=== PATIENT | female | born 1985 | race Caucasian/White ===

== ENCOUNTER 2017-08-22 23:37 | Emergency (ER) | payer OTHER, SELFPAY ==
[2017-08-22 23:38] VITALS: BP 121/86; PULSE 106; RESP 15; TEMP 36.9; BMI 33.9
[2017-08-23] MEDS: 0.9% Normal Saline 1,000 ML 1000 ML IV (00:23)
[2017-08-23] MEDS: Morphine 4 MG/ML Syringe IV ×2 (00:23→02:44)
[2017-08-23] MEDS: Ondansetron 4 MG/2 ML Vial IV (00:23)
[2017-08-23] MEDS: Dicyclomine 20 MG/2 ML Vial IM (00:23)
[2017-08-23 00:38] LABS: Mucous, Urine 0 SEEN /hpf (<or=2+); Red Blood Cells-Urine 0 SEEN /hpf (0-5); White Blood Cells 0 SEEN /hpf (0-5)
[2017-08-23 00:40] LABS: Absolute Lymphocyte Count 0.27 X10^3/ul (0.83-4.51); Absolute Neutrophil Count 9.9 X10^3/uL (2.0-7.7); Basophil# 0.01 X10^3/uL; Basophil% 0.1 % (0-1); Differential Indicated SCAN CRITERIA MET; Hematocrit 48.9 % (37-47); Hemoglobin 16.7 g/dl (12.0-15.0); Lymphocyte # 0.27 X10^3/ul (4.0); Lymphocyte % 2.5 % (19-41); Mean Corp Hgb Conc 34.2 g/gl (32-36); Mean Corpuscular Hgb 30.1 pg (27.0-32.0); Mean Corpuscular Volume 88.1 fL (81-99); Mean Platelet Vol. 11.2 fl (6.2-12.0); Monocyte# 0.43 X10^3/uL; Monocyte% 4.1 % (0-10); Neutrophil # 9.87 X10^3/uL (2.7-7.7); Neutrophil % 93.1 % (47-70); POSITIVE COUNT NO; POSITIVE DIFFERENTIAL YES; POSITIVE MORPHOLOGY NO; Platelet Count 192 K/mm3 (150-450); RBC Distribution Width SD 42.2 fl (35.1-43.9); Red Blood Count 5.55 M/mm3 (4.2-5.4); White Blood Count 10.6 K/mm3 (4.4-11.0)
[2017-08-23 00:44] LABS: Color, Urine Amber (Yellow); Glucose, Dipstick Normal (Normal); Ketone-Dipstick 50 mg/dl (Negative); Leukocyte Esterase-Dipstick 100 /ul (Negative); Nitrite-Dipstick Negative (Negative); Occult Blood-Urine 150 /ul (Negative); Protein-Dipstick 30 mg/dl (Negative); Specific Gravity, Urine 1.025 (1.002-1.030); Urine Clarity Turbid (Clear); Urine Urobilinogen 1 mg/dl (Normal)
[2017-08-23 00:46] LABS: Urine Bilirubin Dipstick 1 mg/dL (Negative)
--- OUTSIDE RECORDS SUMMARY | 2017-08-23 00:56 | XMS RPT_ITS ---
:1985 Author Organization [facility] Care Team Providers Name Role Phone PODLOGMELANIE GOLDEN (ELIOT) Attending Unavailable MELANIE MCNULTY (ELIOT) Referring Unavailable ASSESSMENT, HEALTH RISK Attending Unavailable Ungur Remus Attending Unavailable Primay Care Physicia, No Primary Care Unavailable PROBLEMS PROBLEMS DATE TYPE CONDITION / CODE ATTENDING STATUS SOURCE 05/14/2017 Active Mixed hyperlipidemia NA Active [facility] / E78.2(ICD-10) [facility] [place] Rep[facility] 06/04/2017 Active Encounter for NA Active [facility] screening for lipoid [place] disorders / Repository Z13.220(ICD-10) 06/04/2017 Active Personal history of NA Active [facility] other endocrine, [place] nutritional and Repository metabolic disease / Z86.39(ICD-10) PROCEDURES PROCEDURES No Procedure Records FoundRESULTS RESULTS URINALYSIS, COMPLETE Collected: 08/23/2017 Status: P Source: [place] 12:33 AM [facility] [place] REPOSITORY Order Comment: Order Date: 08/23/17COLOR OF URINE MAY AFFECT DIPSTICK RESULTS.How was Urine Obtained? CLEAN CATCH TYPE CODE TESTS RESULT OUT OF RANGE REFERENCE UNITS LAB L400.3000 Normal Yellow COLOR Nay LAB L400.3050 Normal Clear CLARITY Turbid LAB L400.3200 Normal Normal mg/dl GLUCOSE, UR Normal LAB L400.3300 High Negative mg/dL BILIRUBIN 1 URINE Result Comment: NCOLOR OF URINE MAY AFFECT DIPSTICK RESULTS. LAB L400.3400 High Negative mg/dl KETONE UR 50 LAB L400.3465 Normal 1.002-1.030 SP.GR. 1.025 DIPSTX LAB L400.3550 Normal 5.0 - 8.0 pH UR 5.0 LAB L400.3600 High Negative mg/dl PROT 30 DIPSTX LAB L400.3700 High Normal mg/dl UROBILI 1 LAB L400.3750 Normal Negative NITRITE UR Negative LAB L400.3780 High Negative /ul OCCULT 150 BLOOD-UR LAB L400.3800 High Negative /ul LEUK 100 ESTERASE LAB L400.4050 Normal 0-5 /hpf WBC 0 SEEN LAB L400.4100 Normal 0-5 /hpf RBC-UA 0 SEEN LAB L400.4150 Normal 5-10 /hpf SQUAM EPI 0 SEEN LAB L400.4300 Normal None Seen /hpf BACTERIA 0 SEEN LAB L400.4350 Normal <or=2+ /hpf MUCUS, 0 SEEN URINE Performed By: #### L400.0001 ####[facility] [address] [place], [address] CBC W/DIFF, AUTOMATED Collected: 08/23/2017 Status: P Source: [place] 12:20 AM [facility] [place] REPOSITORY TYPE CODE TESTS RESULT OUT OF RANGE REFERENCE UNITS LAB L100.1000 Normal 4.4-11.0 K/mm3 WBC 10.6 LAB L100.1200 High 4.2-5.4 M/mm3 RBC 5.55 LAB L100.1300 High 12.0-15.0 g/dl HGB 16.7 LAB L100.1400 High 37-47 % HCT 48.9 LAB L100.1500 Normal 81-99 fL MCV 88.1 LAB L100.1600 Normal 27.0-32.0 pg MCH 30.1 LAB L100.1700 Normal 32-36 g/gl MCHC 34.2 LAB L100.1810 Normal 11.6-14.6 % RDW 13.0 CV LAB L100.1820 Normal 35.1-43.9 fl RDW 42.2 SD LAB L100.1900 Normal 150-450 K/mm3 PLT 192 LAB L100.2000 Normal 6.2-12.0 fl MPV 11.2 LAB L100.2100 High 47-70 % NEUT% 93.1 LAB L100.2200 Low 19-41 % LY% 2.5 LAB L100.2300 Normal 0-10 % MONO% 4.1 LAB L100.2400 Normal 0-5 % EO% 0.0 LAB L100.2500 Normal 0-1 % BASO% 0.1 LAB L100.2550 Normal 0.0-0.9 % IM 0.200 GRAN % Result Comment: IG% - Immature Granulocytes (promyelocytes, myelocytes andmetamyelocytes) > 1% indicates that a LEFT SHIFT is Present. LAB L100.2620 High 2.0-7.7 X10 3/uL Absolute Neut 9.9 LAB L100.2720 Low 0.83-4.51 X10 3/ul Absolute Lymph 0.27 Performed By: #### L100.0100 ####[facility] [address] [place] [place], [address] CBC Collected: 06/04/2017 Status: F Source: [place] 10:02 [facility] REPOSITORY TYPE CODE TESTS RESULT OUT OF REFERENCE UNITS RANGE LAB WBC 3.70-11.00 k/uL WBC 5.24 LAB RBC High 3.90-5.20 m/uL RBC 5.27 LAB HGB 11.5-15.5 g/dL Hemoglobin 15.5 LAB HCT High 36.0-46.0 % Hematocrit 47.3 LAB MCV 80.0-100.0 fL MCV 89.8 LAB MCH 26.0-34.0 pG MCH 29.4 LAB MCHC 30.5-36.0 g/dL MCHC 32.8 LAB RDWCV 11.5-15.0 % RDW-CV 12.6 LAB PLTCT 150-400 k/uL Platelet 201 Count LAB MPV 9.0-12.7 fL MPV 11.1 LAB ABSNUC <0.01 k/uL Absolute nRBC <0.01 Performed By: #### CBC, CMP, LIPB, B12 ####[facility] [address] [place], [place] [phone] COMP METABOLIC PANEL Collected: 06/04/2017 Status: F Source: [place] 10:02 [facility] REPOSITORY TYPE CODE TESTS RESULT OUT OF REFERENCE UNITS RANGE LAB TP 6.3-8.0 g/dL Protein, Total 7.6 LAB ALB 3.9-4.9 g/dL Albumin 4.5 LAB CA 8.5-10.2 mg/dL Calcium, Total 9.5 LAB TBIL 0.2-1.3 mg/dL Bilirubin, 0.4 Total LAB ALKP 32-117 U/L Alkaline 66 Phosphatase LAB AST 13-35 U/L AST 26 LAB GLU Low 74-99 mg/dL Glucose 69 Result Comment: The [place] Diabetes Association (ADA) provides guidance for cutoff values for fasting glucose and random glucose. The ADA defines fasting as no caloric intake for at least 8 hours. Fasting plasma glucose results between 100 to 125 mg/dL indicate increased risk for diabetes (prediabetes) .Fasting plasma glucose results greater than or equal to 126 mg/dL meet the criteria for diagnosis of diabetes. In the absence of unequivocal hyperglycemia, results should be confirmed by repeat testing. In a patient with classic symptoms of hyperglycemia or hyperglycemic crisis, random plasma glucose results greater than or equal to 200 mg/dL meet the criteria for diagnosis of diabetes.Reference: Standards of Medical Care in Diabetes 2016, [place] Diabetes Association. Diabetes Care. 2016.39( Suppl 1). LAB BUN 7-21 mg/dL BUN 9 LAB CRET 0.58-0.96 mg/dL Creatinine 0.72 LAB NA 136-144 mmol/L Sodium 141 LAB K 3.7-5.1 mmol/L Potassium 4.3 LAB CL 97-105 mmol/L Chloride 101 LAB CO2 22-30 mmol/L CO2 24 LAB AGAP 9-18 mmol/L Anion Gap 16 LAB ALT High 7-38 U/L ALT 40 LAB GFRAA eGFR- Amer. >60 LAB GFRNAA . eGFR-All Other Races >60 Result Comment: eGFR (Estimated GFR) Units of measure: mL/min/1.73 meters squaredeGFR is derived from the reexpressed MDRD Study equation using the following parameters: serum creatinine, age, gender and race. The creatinine assay has been calibrated to be traceable to IDMS.An eGFR <60 mL/min/1.73m2 for >3 months is consistent with chronic kidney disease. Refer to KDOQI guidelines for clinical interpretation.In patients with unstable renal function, e.g. those with acute kidney injury, the eGFR may not accurately reflect actual GFR. Performed By: #### CBC, CMP, LIPB, B12 ####[facility], [place] [phone] LIPID PANEL, BASIC Collected: 06/04/2017 Status: F Source: [place] 10:02 AM [facility] REPOSITORY TYPE CODE TESTS RESULT OUT OF REFERENCE UNITS RANGE LAB CHOL High <200 mg/dL Cholesterol 234 Result Comment: <200 mg/dL, Desirable 200-239 mg/dL, Borderline high>239 mg/dL, High LAB TRIGLY <150 mg/dL Triglyceride 138 Result Comment: <150 mg/dL, Normal 150-199 mg/dL, Borderline high 200-499 mg/dL, High>499 mg/dL, Very high LAB HDL >39 mg/dL HDL-Cholesterol 46 Result Comment: 40-59 mg/dL, Acceptable>59 mg/dL, High: Negative risk factor for coronary heart disease<40 mg/dL, Low: Positive risk factor for coronary heart disease LAB LDL High <100 mg/dL LDL-Cholesterol 160 Result Comment: <100 mg/dL, Optimal 100-129 mg/dL, Near optimal/above optimal 130-159 mg/dL, Borderline high 160-189 mg/dL, High>189 mg/dL, Very highSecondary prevention optimal LDL Cholesterol levels are recommended to be < 70 mg/dL LAB NONHDL High <130 mg/dL Non HDL Cholesterol 188 Result Comment: <130 mg/dL, Optimal 130-159 mg/dL, Near optimal/above optimal 160-189 mg/dL, Borderline high 190-219 mg/dL, High>219 mg/dL, Very highSecondary prevention optimal non HDL Cholesterol levels are recommended to be < 100 mg/dL LAB FT hrs Fasting Time 3 LAB VLDL <30 mg/dL VLDL Cholesterol 28 LAB TCHDL <5.10 TC:HDL Ratio 5.09 LAB LDLHDL High <2.54 LDL:HDL Ratio 3.48 Result Comment: Reference:1. National Cholesterol Education Program ATP III Guideline At-A-Glance Quick Desk Reference: National Heart, Lung, and Blood [place]. National Institutes of Health. 2001: NIH Publication No. 01- 3305.2. An International Atherosclerosis Society position paper: global recommendations for the management of dyslipidemia: executive summary, Atherosclerosis. 2014: 232(2):410-413. Performed By: #### CBC, CMP, LIPB, B12 ####[facility] [address], [place] [phone] VITAMIN B12 Collected: 06/04/2017 Status: F Source: [place] 10:02 AM [facility] REPOSITORY TYPE CODE TESTS RESULT OUT OF REFERENCE UNITS RANGE LAB B12 232-1245 pg/mL Vitamin 314 B12 Performed By: #### CBC, CMP, LIPB, B12 ####[facility], [place] [phone] PROGRESS Observed: 05/14/2017 Status: COMPLETED Source: [place] 2:09 PM [facility] REPOSITORY HNO ID: [id number]: Melanie (Post Anesthesia Nurse) PodlogarService: (none)Author Type: Nurse PractitionerType: Progress NotesFiled: 05/14/2017 5:05 PMNote Text:05/14/2017Patient presents with:PhysicalSUBJECTIVE: This is a 31 year old that is here today for Above Complaints.Sees Psychiatrist up in [place] every 4- 6 weeks who manages heranxiety/depression medications. Has concern today for acne that has beenongoing for 1 year. Talked to psychiatrist thinking her medications werecausing it, but psychiatrist says no. Has tried several OTC medicationswith no relief. Denies past hx of acne problems and has never been treatedfor it.Feeling nervous, anxious, or on edge 2 Over half the daysNot being able to stop or control worrying 2 Over half the daysWorrying too much about different things 2 Over half the daysTrouble relaxing 2 Over half the daysBeing so restless that it's hard to sit still 1 Several daysBeing easily annoyed or irritable 1 Several daysFeeling afraid as if something awful might happen 2 Over half the daysGAD-7 Anxiety Score 12If you checked off any problems, how difficult have these problems made itfor you to do your work, take care of things at home, or get along withother people? Somewhat difficultLittle or no interest or pleasure in doing things 2 More than half thedaysFeeling down, depressed, or hopeless 2 More than half the daysTrouble falling or staying asleep, or sleeping too much 1 Several daysFeeling tired or having little energy 0 Not at allPoor appetite or overeating 0 Not at allFeeling bad about yourself- or that you are a failure or having letyourself or your family down 2 More than half the daysTrouble concentrating on things, such as reading the newpaper or watchingtelevision 1 Several daysMoving or speaking so slowly that other people could have noticed? Or theopposite- being so fidgety or restless that you have been moving around alot more than usual 0 Not at allThoughts that you would be better off or of hurting yourself in someway 1 Several [id number] Score 9If you checked off any problems, how difficult have these problems made itfor you to do your work, take care of things at home, or get along withother people? Not difficult at allPAST MEDICAL HISTORYDiagnosis Date- Anxiety and depression- HyperlipidemiaALLERGIES Review of patient's allergies indicates no known allergies.MEDICATIONSCurrent Outpatient Prescriptions:ARIPiprazole (ABILIFY) 5 mg tablet Take 1 tablet by mouth once daily.Taking one half of 5mgtraZODone ( DESYREL) 100 mg tablet Take 1 tablet by mouth daily at bedtime.venlafaxine ER (EFFEXOR XR) 37.5 mg 24 hr capsule Take 37.5 mg by mouthonce daily.meloxicam (MOBIC) 15 mg tablet Take 1 tablet by mouth once daily. Takewith food.No current facility- administered medications for this visit.Medications and allergies reviewed by this provider.SOCIAL HISTORYSocial History Marital status: Spouse name: Years of education: Number of children:Social History Main Topics Smoking status: Never Smoker Smokeless status: Never UsedREVIEW OF SYSTEMSGENERAL: No weight loss, malaise or feversHEENT: Negative for frequent or significant headaches, No changes inhearing or vision, no nose bleeds or other nasal problemsNECK: Negative for lumps, goiter, pain and significant neck swellingRESPIRATORY: Negative for cough, hemoptysis, wheezing, COPD, dyspnea orshortness of breathCARDIOVASCULAR: Negative for chest pain, leg swelling, hypertension, CHFor palpitationsGI: No nausea, vomiting, or diarrhea, No heartburn or reflux symptoms andConstipationGU: No history of dysuria, frequency or incontinenceMUSCULOSKELETAL: Negative for joint pain or swelling, back pain or musclepainSKIN: Negative for lesions, rash, and itchingPSYCH: Negative for sleep disturbance, mood disorder and recentpsychosocial stressorsHEMATOLOGY/LYMPHOLOGY: Negative for prolonged bleeding, bruising easily orswollen nodesENDOCRINE: Negative for cold or heat intolerance, polyuria, polydipsia andgoiterNEURO: No history of headaches, syncope, paralysis, seizures or tremorsAll other reviewed and negative other than HPI.OBJECTIVE:BP 118/62 (BP Site: Left Arm, BP Position: Sitting, BP Cuff Size: RegularAdult) Pulse 60 Resp 18 Ht 166.4 cm (5' 5.5) Wt 91.7 kg (202 lb1.9 oz) BMI 33.12 kg/m2. Vital signs reviewed by this provider.APPEARANCE Well appearing, alert, in no acute distress, well-hydrated, well nourished.EYES PERRLA, conjunctiva and sclera normal.EARS External ears normal, canals clearTHROAT normal, no erythemaNECK Supple, no adenopathy; thyroid symmetric, normal size, no bruitsHEART RRR with normal S1 and S2, no murmurs, no gallops, no JVDappreciatedLUNG clear to auscultationABDOMEN bowel sounds normoactive, no bruits, soft, non-tender,non-distended, no tenderness to palpationEXTREMITIES Extremities normal, No deformities, No skin discoloration, Noedema and Normal pulses bilaterally.NEURO Awake, alert and oriented x 3, Cranial nerves II-XII grossly intact,Reflexes symmetrical, Normal gait and No involuntary motions.SKIN Skin color, turgor normal, no suspicious rashes or lesions. Face withscattered maculopapular areas.ASSESSMENT/PLAN:1. Well adult exam - ICD9: V70.0, ICD10: Z00.00 (primary diagnosis)- Encouraged monthly Breast Self Exam- Recommended regular aerobic exercise.- Discussed need and benefit for weight loss. BMI 33.12 kg/(m2)- Lengthy discussion in office today regarding diet and exercise.Discussed use of small plate to eat meals from, drink 1 glass of ouzyh55-36 minutes prior to eating meal, drink 8 glasses of water daily, eatfresh fruit and vegetable during meal first then lean protein such asgrilled/baked chicken breast or fish, limit carbohydrate intake (lesspasta, breads, rice and snack foods) as well as limiting sugars ( dessertsetc). Important to count / track your calories and exercise as well.- Check CBC and cholesterol- Follow up for annual exam in one year.2. Acne vulgaris - ICD9: 706.1, ICD10: L70.0- clindamycin-benzoyl peroxide thin application daily- consider referral to dermatology3. GAURI (generalized anxiety disorder) - ICD9: 300.02, ICD10: F41.1-stable- follow with psychiatrist4. Depression, unspecified depression type - ICD9: 311, ICD10: F32.9-as above5. Hx of non anemic vitamin B12 deficiency - ICD9: V12.1, ICD10: Z86.39- patient is new with no records, has been treated for B12 def in past andher father has this, will check level and replace if needed- VITAMIN B12 BLOOD6. Screening for cholesterol level - ICD9: V77.91, ICD10: Z13.220- per patient she has been treated for high cholesterol in the, no recordher to verify, will check lipid panel today and treat accordingly- LIPID PANEL BASICJulie Podlogar, CNPPrescription instructions reviewed with patient as applicable. Patientadvised if symptoms do not improve or if symptoms worsen sooner, tocontact their primary care physician. Potential red flag symptomsdiscussed with the patient. Reviewed appropriate action plan to take ifred flag symptoms occur. Patient agreeable to treatment plan. CNOV Observed: 05/14/2017 Status: COMPLETED Source: [place] 2:00 PM [facility] REPOSITORY Office Visit (FAMPWS) ---------JOSE CARLOS VEGAS ([id number]) 1985 F COWDate Time Provider Department05/14/17 2:00 PM MELANIE MCNULTY ([facility]) FAMPWS During your visit today, we recorded the following information about you: Pulse Respiration Blood pressure Weight 60/minute 18/minute 118/62 91.7 kg Height 1.664 Rodolfo Mcnulty CNP 05/14/2017 5:05 PM Signed05/14/2017Patient presents with:PhysicalSUBJECTIVE: This is a 31 year old that is here today for Above Complaints. SeesPsychiatrist [place] in [place] 4-6 weeks who manages her anxiety/depressionmedications. Has concern today for acne that has been ongoing for 1 year.Talked to psychiatrist thinking her medications were causing it, butpsychiatrist says no. Has tried several OTC medications with no relief. Deniespast hx of acne problems and has never been treated for it.Feeling nervous, anxious, or on edge 2 Over half the daysNot being able to stop or control worrying 2 Over half the daysWorrying too much about different things 2 Over half the daysTrouble relaxing 2 Over half the daysBeing so restless that it's hard to sit still 1 Several daysBeing easily annoyed or irritable 1 Several daysFeeling afraid as if something awful might happen 2 Over half the daysGAD-7 Anxiety Score 12If you checked off any problems, how difficult have these problems made it foryou to do your work, take care of things at home, or get along with otherpeople? Somewhat difficultLittle or no interest or pleasure in doing things 2 More than half the daysFeeling down, depressed, or hopeless 2 More than half the daysTrouble falling or staying asleep, or sleeping too much 1 Several daysFeeling tired or having little energy 0 Not at allPoor appetite or overeating 0 Not at allFeeling bad about yourself- or that you are a failure or having let yourself oryour family down 2 More than half the daysTrouble concentrating on things, such as reading the newpaper or watchingtelevision 1 Several daysMoving or speaking so slowly that other people could have noticed? Or theopposite- being so fidgety or restless that you have been moving around a lotmore than usual 0 Not at allThoughts that you would be better off or of hurting yourself in some way 1Several [id number] Score 9If you checked off any problems , how difficult have these problems made it foryou to do your work, take care of things at home, or get along with otherpeople? Not difficult at allPAST MEDICAL HISTORYDiagnosis Date- Anxiety and depression- HyperlipidemiaALLERGIES Review of patient's allergies indicates no known allergies.MEDICATIONSCurrent Outpatient Prescriptions:ARIPiprazole (ABILIFY) 5 mg tablet Take 1 tablet by mouth once daily. Takingone half of 5mgtraZODone (DESYREL) 100 mg tablet Take 1 tablet by mouth daily at bedtime.venlafaxine ER (EFFEXOR XR) 37.5 mg 24 hr capsule Take 37.5 mg by mouth oncedaily.meloxicam (MOBIC) 15 mg tablet Take 1 tablet by mouth once daily. Take withfood.No current facility-administered medications for this visit.Medications and allergies reviewed by this provider.SOCIAL HISTORYSocial History Marital status: Spouse name: Years of education: Number of children:Social History Main Topics Smoking status: Never Smoker Smokeless status: Never UsedREVIEW OF SYSTEMSGENERAL: No weight loss, malaise or feversHEENT: Negative for frequent or significant headaches, No changes in hearing orvision, no nose bleeds or other nasal problemsNECK: Negative for lumps, goiter, pain and significant neck swellingRESPIRATORY: Negative for cough, hemoptysis, wheezing, COPD, dyspnea orshortness of breathCARDIOVASCULAR: Negative for chest pain, leg swelling, hypertension, CHF orpalpitationsGI: No nausea, vomiting, or diarrhea, No heartburn or reflux symptoms andConstipationGU: No history of dysuria, frequency or incontinenceMUSCULOSKELETAL: Negative for joint pain or swelling, back pain or muscle painSKIN: Negative for lesions, rash, and itchingPSYCH: Negative for sleep disturbance, mood disorder and recent psychosocialstressorsHEMATOLOGY/LYMPHOLOGY: Negative for prolonged bleeding, bruising easily orswollen nodesENDOCRINE: Negative for cold or heat intolerance, polyuria, polydipsia andgoiterNEURO: No history of headaches, syncope, paralysis, seizures or tremorsAll other reviewed and negative other than HPI.OBJECTIVE:BP 118/62 (BP Site: Left Arm, BP Position: Sitting, BP Cuff Size : RegularAdult) Pulse 60 Resp 18 Ht 166.4 cm (5' 5.5ANDquot;) Wt 91.7 kg (202 lb1.9 oz) BMI 33.12 kg/m2. Vital signs reviewed by this provider.APPEARANCE Well appearing, alert, in no acute distress, well-hydrated, wellnourished.EYES PERRLA, conjunctiva and sclera normal.EARS External ears normal, canals clearTHROAT normal, no erythemaNECK Supple, no adenopathy; thyroid symmetric, normal size, no bruitsHEART RRR with normal S1 and S2, no murmurs, no gallops, no JVD appreciatedLUNG clear to auscultationABDOMEN bowel sounds normoactive, no bruits, soft, non-tender, non-distended,no tenderness to palpationEXTREMITIES Extremities normal, No deformities, No skin discoloration, No edemaand Normal pulses bilaterally.NEURO Awake, alert and oriented x 3, Cranial nerves II-XII grossly intact,Reflexes symmetrical, Normal gait and No involuntary motions.SKIN Skin color, turgor normal, no suspicious rashes or lesions. Face withscattered maculopapular areas.ASSESSMENT/PLAN:1. Well adult exam - ICD9: V70.0, ICD10: Z00.00 (primary diagnosis)- Encouraged monthly Breast Self Exam- Recommended regular aerobic exercise.- Discussed need and benefit for weight loss. BMI 33.12 kg/(m2)- Lengthy discussion in office today regarding diet and exercise. Discussed useof small plate to eat meals from, drink 1 glass of water 10-15 minutes prior toeating meal, drink 8 glasses of water daily, eat fresh fruit and vegetableduring meal first then lean protein such as grilled/baked chicken breast orfish, limit carbohydrate intake (less pasta, breads, rice and snack foods) aswell as limiting sugars (desserts etc). Important to count / track yourcalories and exercise as well.- Check CBC and cholesterol- Follow up for annual exam in one year.2. Acne vulgaris - ICD9: 706.1, ICD10: L70.0- clindamycin-benzoyl peroxide thin application daily- consider referral to dermatology3. GAURI (generalized anxiety disorder) - ICD9: 300.02, ICD10: F41.1-stable- follow with psychiatrist4. Depression, unspecified depression type - ICD9: 311, ICD10: F32.9-as above5. Hx of non anemic vitamin B12 deficiency - ICD9: V12.1, ICD10: Z86.39- patient is new with no records, has been treated for B12 def in past and herfather has this, will check level and replace if needed- VITAMIN B12 BLOOD6. Screening for cholesterol level - ICD9 : V77.91, ICD10: Z13.220- per patient she has been treated for high cholesterol in the, no record herto verify, will check lipid panel today and treat accordingly- LIPID PANEL BASICJulie Podlogar, CNPPrescription instructions reviewed with patient as applicable. Patient advisedif symptoms do not improve or if symptoms worsen sooner, to contact theirprimary care physician. Potential red flag symptoms discussed with thepatient. Reviewed appropriate action plan to take if red flag symptoms occur.Patient agreeable to treatment plan.Referring Provider: SELF [[id number]]Allergies As of Date: 05/14/2017(No Known Allergies)Date Reviewed: 05/14/2017Reviewed by: Melanie [facility]) Podlogar - Fully AssessedReason for Visit: Physical [83]Primary Visit Diagnosis:Well adult exam [Z00.00] Other Visit Diagnoses:Acne vulgaris [L70.0] GAURI (generalized anxiety disorder) [F41.1] Depression, unspecified depression type [F32.9] Hx of non anemic vitamin B12 deficiency [Z86.39] Screening for cholesterol level [Z13.220]Order(s):ARIPiprazole (ABILIFY) 5 mg tabletTake 1 tablet by mouth once daily. Taking one half of 5mgDisp: Rfl: 11 traZODone (DESYREL) 100 mg tabletTake 1 tablet by mouth daily at bedtime.Disp: Rfl: clindamycin-benzoyl peroxide 1.2-2.5 % glwpApply 1 Container to affected area once daily.Disp: 50 gRfl: 3 LIPID PANEL BASIC [SQLIPB] Order #: [id number] FUTURE VITAMIN B12 BLOOD [SQB12] Order #: [id number] FUTURE CBC [SQCBC] Order #: [id number] FUTUREPrescriptions as of 05/14/2017 Sig: ARIPIPRAZOLE 5 MG TABLET Take 1 tablet by mouth once d* TRAZODONE 100 MG TABLET Take 1 tablet by mouth daily * VENLAFAXINE ER 37.5 MG CAPSUL* Take 37.5 mg by mouth once da* CLINDAMYCIN 1.2 %-BENZOYL PER* Apply 1 Container to affected*Problem List As Of Date 05/14/2017 Noted Resolved Hyperlipidemia, mixed [E78.2] INVALID FOR* GAURI ( generalized anxiety disorder) [F41.1] INVALID FOR* Depression [F32.9] INVALID FOR* History of non anemic vitamin B12 deficiency [Z*INVALID FOR*Prescriptions ordered this encounter Disp Refills Start End ARIPIPRAZOLE 5 MG TABLET 11 05/14/2017 Class: Med Update Route: ORAL Sig: Take 1 tablet by mouth once daily. Taking one half of 5mg Cosign accepted by MELANIE MCNULTY CNP[[id number]] on 05/14/2017 3:09 PM TRAZODONE 100 MG TABLET 05/14/2017 Class: Med Update Route: ORAL Sig: Take 1 tablet by mouth daily at bedtime. Cosign accepted by MELANIE MCNULTY CNP[[id number]] on 05/14/2017 3:09 PM CLINDAMYCIN 1.2 %-BENZOYL PEROXIDE 2* 50 g 3 05/14/2017 Route: TOPICAL Sig: Apply 1 Container to affected area once daily.Medications Discontinued During This Encounter meloxicam (MOBIC) 15 mg tablet 20 t * 0 11/23/2015 05/14/2017 Route: ORAL Sig: Take 1 tablet by mouth once daily. Take with food. Disc: Course of therapy completedFollow-up and Disposition History Recorded ---------Questionnaire: GAURI-7 ANXIETY SCALEFeeling nervous, anxious, or on edge -> 2 Over half the daysNot being able to stop or control worrying -> 2 Over half the daysWorrying too much about different things -> 2 Over half the daysTrouble relaxing -> 2 Over half the daysBeing so restless that it's hard to sit still -> 1 Several daysBeing easily annoyed or irritable -> 1 Several daysFeeling afraid as if something awful might happen -> 2 Over half the daysGAD-7 Anxiety Score -> 12If you checked off any problems, how difficult have these problems made it foryou to do your work, take care of things at home, or get along with otherpeople? -> Somewhat difficult Questionnaire: [id number] or no interest or pleasure in doing things -> 2 More than half the daysFeeling down, depressed, or hopeless -> 2 More than half the daysTrouble falling or staying asleep, or sleeping too much -> 1 Several daysFeeling tired or having little energy -> 0 Not at allPoor appetite or overeating -> 0 Not at allFeeling bad about yourself- or that you are a failure or having let yourself oryour family down -> 2 More than half the daysTrouble concentrating on things, such as reading the newpaper or watchingtelevision -> 1 Several daysMoving or speaking so slowly that other people could have noticed? Or theopposite- being so fidgety or restless that you have been moving around a lotmore than usual -> 0 Not at allThoughts that you would be better off or of hurting yourself in some way -> 1 S- e- v- e- r- a- l d- a- [id number] Score -> 9If you checked off any problems, how difficult have these problems made it foryou to do your work, take care of things at home, or get along with otherpeople? -> Not difficult at [facility] Number: [id number] Status:Closed by KO MCNULTYIE STAGING TECHNICIAN on 05/14/17 LIPID PROFILE Collected: 12/31/2016 Status: F Source: CAPITAN 8:20 AM [facility] REPOSITORY TYPE CODE TESTS RESULT OUT OF RANGE REFERENCE UNITS LAB L501.4900 High 200 mg/dL CHOL 226 Result Comment: <200 mg /dL Desirable 200-240 mg/dL Borderline >240 mg/dL High Risk LAB L501.5000 Normal mg/dL TRIG 158 Result Comment: The drugs N-Acetylcysteine and Metamizole may falselydepress this assay.Serum Triglycerides Reference Interval Normal <150 mg/dL Borderline high 150 - 199 mg/dL High 200 - 499 mg/dL Very High > or = 500 mg/dL LAB L501.6400 Normal mg/dL HDL 45 Result Comment: The drugs N-Acetylcysteine and Metamizole may falselydepress this assay. Reference Range HDL <40 mg/dL Low HDL Cholesterol HDL >or= 60 mg/dL High HDL Cholesterol LAB L501.6500 High 0-130 mg/dL LDL 149 LAB L501.6600 Normal 5-40 mg/dL VLDL 32 Performed By: #### L500.4100, L501.0100 ####[facility] [address] [place], [address] GLUCOSE Collected: 12/31/2016 Status: F Source: CAPITAN 8:20 AM [facility] REPOSITORY TYPE CODE TESTS RESULT OUT OF RANGE REFERENCE UNITS LAB L501.0100 Normal 70-110 mg/dL GLU 86 Performed By: #### L500.4100, L501.0100 ####[facility] [address] [place], [address] ALLERGIES ALLERGIES DATE TYPE / CODE NAME / CODE REACTION SEVERITY SOURCE 08/22/2017 Drug No Known Unknown [facility] Allergy/416 Allergies/[id number] Hospital [id number](SNOM 0388(RXNORM) Repository ED CT) Drug NO KNOWN [facility] Class/93634 ALLERGIES Main Amelia 1003(SNOMED Repository CT) ENCOUNTERS ENCOUNTERS ADMIT/DISCHARGE ACCOUNT ADMITTING ENCOUNTER LOCATION SOURCE NUMBER CLASS 08/22/2017 [id number] Emergency [facility] ing:ED Repository 06/04/2017 [id number] Ambulatory [facility] Repository 05/14/2017/05/16/19 [id number] Ambulatory [address] Repository 12/31/2016 [id number] [facility] ing:HW Repository PAYERS PAYERS ENCOUNTER GUARANTOR PAYER SUBSCRIBER SOURCE 08/22/2017 JOSE CARLOS Dickson Primary JOSE CARLOS [id number] Insurance:Gabriel WEIGDOB: [facility] [place]: [id number] [id number] Repository [id number]: [phone]) Date:[id number] [phone] () [id number], [place] [address]ST: 08/22/2017 [facility] Number: Effective Repository Date:2017-08-22
[2017-08-23 00:58] LABS: Bacteria 3+ /hpf (None Seen)
[2017-08-23 00:59] LABS: Anion Gap 7 (5-15); BUN 16 mg/dL (7-18); BUN/Creat Ratio 21.2 RATIO (10-20); Calcium,Total 8.6 mg/dL (8.5-10.1); Chloride 109 mmol/L (98-107); Creatinine, Serum 0.75 mg/dL (0.55-1.02); EST Glomerular Filtration Rate 94 mL/min (>60); Est Glom Filt Rate - Afr Amer 114 mL/min (>60); Glucose 134 mg/dL (74-106); Potassium 3.8 mmol/L (3.5-5.1); Sodium Level 138 mmol/L (136-145)
[2017-08-23 00:59] LABS: Amorphous Sediment 1+; Squamous Epithelial Cells - UA 5-10 SEEN /hpf (5-10)
[2017-08-23 01:01] LABS: Differential Comment SCANNED
[2017-08-23 01:06] LABS: Pregnancy, Serum, hCG Quali. NEGATIVE Negative (0-9 Nonpreg)
[2017-08-23 02:43] VITALS: BP 125/81; PULSE 95; RESP 16; O2SAT 95
[2017-08-23] MEDS: proMETHazine 25 MG/ML Syringe 6.25 MG IV (02:43)
--- NOTE | 2017-08-23 04:07 | ED.VISSUMM ---
- ER Visit Summary Date of Service: 08/23/17 Chief Complaint: [Vomiting and diarrhea] History of Present Illness: The patient is a 31 F [presents the emergency department with symptoms that started at 7 AM yesterday. Patient's vomited multiple times and multiple watery stools. Patient describes diffuse abdominal discomfort that gets better after she vomits and then ramps up again. The abdominal discomfort is diffuse. Patient denies urinary symptoms. Patient states that she has 2 young children at home and she was told that they both have diarrhea. Patient denies eating any undercooked or suspicious foods. She has had no fever.] Physical Examination: [HEENT-PERRLA, EOMI. Cranial nerves II through XII grossly intact. TMs clear. Mucous membranes dry. No adenopathy. Cardiovascular-regular rate and rhythm without murmur or ectopy Lungs-clear to auscultation, chest wall stable without crepitus or subcu emphysema Abdomen-normoactive bowel sounds, soft. Patient has diffuse tenderness on exam. There is no rebound, rigidity, or perineal signs. Extremities-intact ?4, normal range of motion, normal pulses, atraumatic] Test Results: [CBC with differential obtained showed a white blood cell count of 10.6, hemoglobin 16.7, hematocrit 49, platelets 192. Chemistries unremarkable. Urinalysis unremarkable. HCG was negative.] Emergency Department Course and Treatment: [Patient was medicated with Bentyl, morphine, and Zofran initially. Patient continued to complain of nausea and abdominal pain and was remedicated with morphine and Zofran. Patient was able to tolerate p.o. fluids. She felt improved. She had no further vomiting or diarrhea while in the emergency department.] Treatment Plan: [Patient will be given a prescription for Bentyl and Phenergan. Patient advised to follow-up with her primary care physician within next 3-5 days. Patient advised to return if persistent vomiting, diarrhea, worsening abdominal pain, fever, or condition should worsen in any way.] Disposition: [Discharged home in stable condition.] Impression: [Viral gastroenteritis] This note was generated with [employer] dictation software. It may contain incorrect words, spelling, and punctuation that were not noted in review of the chart prior to signing ED Disposition - Plan for ED Patient: Chief Complaint: Abd Pain Referrals: Care Physician,No Primary [Primary Care Provider] -
--- NOTE | 2017-08-23 04:12 | ED.DEP ---
ED Disposition - Plan for ED Patient: Chief Complaint: Abd Pain Instructions: ED Gastroenteritis Viral Prescriptions: proMETHazine tablet [Phenergan] 25 mg PO Q6H PRN PRN #10 tab PRN Reason: Nausea Dicyclomine HCl [Bentyl] 20 mg PO TIDAC #20 cap Referrals: Care Physician,No Primary [Primary Care Provider] - 3-5 Days
[2017-08-23] MEDS: proMETHazine 25 MG Tablet PO (04:35)
[2017-08-23 04:39] VITALS: BP 129/74; PULSE 79; RESP 16; O2SAT 97
== END 2017-08-23 04:40 | disposition home or self-care (01) ==
PROVIDERS: Emergency Provider Emergency Medicine
DX: A08.4 Viral intestinal infection, unspecified (principal); R10.84 Generalized abdominal pain; Z79.899 Other long term (current) drug therapy
CPT/HCPCS: 80048; 81001; 84703; 85025; 96361; 96372; 96374; 96375; 96376; 99283; J7030; A4216; J2405

== ENCOUNTER 2024-02-12 05:41 | Day surgery (SDC) | payer BC, SELFPAY ==
[2024-02-08 08:00] LABS: Hematocrit 41.5 % (37-47); Hemoglobin 12.9 g/dL (12.0-15.0); Mean Corp Hgb Conc 31.1 g/dL (32-36); Mean Corpuscular Hgb 26.8 pg (27.0-32.0); Mean Corpuscular Volume 86.3 fL (81-99); Mean Platelet Vol. 10.6 fl (6.2-12.0); POSITIVE MORPHOLOGY YES; Platelet Count 175 K/mm3 (150-450); RBC Distribution Width CV 20.4 % (11.6-14.6); RBC Distribution Width SD 63.3 fl (35.1-43.9); Red Blood Count 4.81 M/mm3 (4.2-5.4); Scan Indicated on CBC? Y/N YES- FLAGS NOTED; White Blood Count 5.1 K/mm3 (4.4-11.0)
[2024-02-08 08:38] LABS: ALB/GLOB Ratio 1.3 RATIO (0.9-2.4); AST(SGOT) 19 U/L (15-37); Alanine Aminotransfer ALT/SGPT 30 U/L (13-56); Albumin, Serum 3.7 g/dL (3.2-5.0); Alkaline Phosphatase 58 U/L (45-117); Anion Gap 3 (5-15); BUN 7 mg/dL (7-18); BUN/Creat Ratio 8.6 RATIO (10-20); Calcium,Total 9.5 mg/dL (8.5-10.1); Chloride 108 mmol/L (98-107); Creatinine, Serum 0.81 mg/dL (0.55-1.02); EST Glomerular Filtration Rate 83 mL/min (>60); Est Glom Filt Rate - Afr Amer 101 mL/min (>60); Globulin 2.8 g/dL (2.2-4.2); Glucose 110 mg/dL (74-106); Magnesium 1.8 mg/dL (1.6-2.6); Potassium 3.4 mmol/L (3.5-5.1); Protein, Total 6.5 g/dL (6.4-8.2); Sodium Level 142 mmol/L (136-145)
[2024-02-12] VITALS (15 sets, daily range): BP systolic 110–137; BP diastolic 75–87; PULSE 74–95; RESP 16–18; TEMP 36.5–37.6; O2SAT 95–100
[2024-02-12 06:16] LABS: Internal QC Validated? YES +Cl - CLEAR BKGD; Pregnancy, Urine Negative Negative
[2024-02-12] MEDS: 0.9% Normal Saline (1000mL) 1,000 ML 40 ML IV (06:39)
[2024-02-12] MEDS: Enoxaparin 40 MG/0.4 ML Syringe SC (06:41)
[2024-02-12] MEDS: Magnesium 2 GM for ERAS IV (06:43)
[2024-02-12] MEDS: Phenazopyridine 95 MG Tablet 190 MG PO (06:45)
[2024-02-12] MEDS: Gabapentin 600 MG Tablet PO (06:45)
[2024-02-12] MEDS: Celecoxib 200 MG Capsule 400 MG PO (06:46)
[2024-02-12] MEDS: Acetaminophen 500 MG Tablet 1000 MG PO ×2 (06:47→14:30)
--- NOTE | 2024-02-12 06:49 | PCM.PRE.AN2 ---
ASA Classification* ASA Classification ASA Classification: 2 Assessment & Plan Anesthesia* Anesthesia Assessment Anesthesia Assessment: Discussed sedation and/or anesthesia options, risks, benefits, and alternatives with patient/parents/legal guardian/POA. Questions invited. The patient/parents/legal guardian/POA seems to understand and agrees to proceed with anesthesia plan. Reviewed the physical assessment, medical history, allergy history and patient home medications list prior to surgery/procedure/anesthetic and documented any changes. Performed airway and anesthesia risk assessments. Anesthesia Type Anesthesia Type: General Anesthesia Focused Assessment* Temperature: 98.6 F Pulse Rate: 95 Blood Pressure: 122/75 Respiratory Rate: 16 Pulse Ox: 99 Airway Assessment Mouth opens: >3 cm Mallampati Score: II Focused Labs Anesthesia Preop lab: CBC WBC 5.1 K/mm3 (4.4-11.0) 02/08/24 07:49 RBC 4.81 M/mm3 (4.2-5.4) 02/08/24 07:49 Hgb 12.9 g/dL (12.0-15.0) 02/08/24 07:49 Hct 41.5 % (37-47) 02/08/24 07:49 Plt Count 175 K/mm3 (150-450) 02/08/24 07:49 CHEMISTRY Potassium 3.4 mmol/L (3.5-5.1) L 02/08/24 07:49 Sodium 142 mmol/L (136-145) 02/08/24 07:49 Magnesium 1.8 mg/dL (1.6-2.6) 02/08/24 07:49 BUN 7 mg/dL (7-18) 02/08/24 07:49 Creatinine 0.81 mg/dL (0.55-1.02) 02/08/24 07:49 Glucose 110 mg/dL (74-106) H 02/08/24 07:49 COAG Urine Test Negative Negative 02/12/24 06:00 Pre-Assessment Diagnosis/Proposed Procedure Planned Operative Procedure(s): (B) ERAS, Hysterectomy,TLH, bilateral salpingectomy, cystoscopy Anesthesia History 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 When Was Last Pacemaker Check QUESTION #4 FULL TEXT: You/Your Family Experience fever (hyperthermia) with Anesthesia Last Oral Intake Last Oral intake: Last Oral Intake NPO since 18:00 02/12/24 06:27 Meds taken in AM with sips of No 02/12/24 06:27 water? 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 Female Yes 01/29/24 10:48 HX of Motion Sickness No 01/29/24 10:48 HX of N/V After Surgery No 01/29/24 10:48 Non-Smoker Yes 01/29/24 10:48 Duration of Surgery greater No 01/29/24 10:48 than 60 minutes Number of Risk Factors 2 01/29/24 10:48 PONV Score Moderate Risk 01/29/24 10:48 Height & Weight Height & Weight: Anesthesia: Height & Weight Height 5 ft 5 in 02/12/24 06:27 Weight: 82 kg 02/12/24 06:27 Body Mass Index (BMI) 30.0 02/12/24 06:27 Respiratory Assessment Respiratory Assessment - photolettering machine operator: Respiratory Tract Infection Hx - photolettering machine operator Hx Respiratory Tract Infection No 01/29/24 10:48 STOP Sleep Apnea STOP Sleep Apnea - photolettering machine operator: STOP Sleep Apnea - photolettering machine operator Hx Hypertension No 01/29/24 10:48 Hx Sleep Apnea No 01/29/24 10:48 CPAP BIPAP Do you snore loudly (louder No 01/29/24 10:48 than talking or can be heard Do you often feel tired/ No 01/29/24 10:48 fatigued/ sleepy during daytime? Has anyone observed you stop No 01/29/24 10:48 breathing during sleep? STOP Results Negative 01/29/24 10:48 QUESTION #5 FULL TEXT : Do you snore loudly (louder than talking or can be heard through closed doors)? 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 Specify any problems Hx of Preganancy in last 3 No 01/29/24 10:48 Months Nurse Filling Out Transfusion [facility] 01/29/24 10:48 & Questions: Date: 01/29/24 01/29/24 10:48 Time: 10:56 01/29/24 10:48 Patient unable to answer at this time (ie. 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 operator: /Reproductive Hx- photolettering machine operator Hx Now No 01/29/24 10:48 Gestational Age (in weeks): EDC: Hx Hx Para Hx Section SAB Active Medications Active Medications: Current Medications Generic Name Dose Route Start Last Admin Trade Name Freq PRN Reason Stop Dose Admin Acetaminophen 1,000 mg 02/12/24 07:30 Acetaminophen 500 Mg Tablet PO 02/12/24 07:31 PREOP ONE Celecoxib 400 mg 02/12/24 07:30 Celecoxib 200 Mg Capsule PO 02/12/24 07:31 X1 ONE Enoxaparin Sodium 40 mg 02/12/24 07:30 Enoxaparin 40 Mg/0.4 Ml Syringe SC 02/12/24 07:31 X1 ONE Gabapentin 600 mg 02/12/24 07:30 Gabapentin 600 Mg Tablet PO 02/12/24 07:31 PREOP ONE Cefazolin Sodium 2 gm/ N/A 20 mls @ 400 mls/hr 02/12/24 07:30 IV 02/12/24 07:32 PREOP ONE Magnesium Sulfate 2 gm/ 104 mls @ 208 mls/hr 02/12/24 07:30 Dextrose IV 02/12/24 07:59 X1 ONE Sodium Chloride 1,000 mls @ 40 mls/hr 02/12/24 06:25 IV 02/14/24 08:24 .Q25H BETZAIDA Protocol Insulin Human Lispro 0 unit 02/12/24 07:30 Insulin Lispro 100 Unit/Ml Insuln.Pen SC Q4H PRN PRN BG >/= 180, SEE PROTOCOL Protocol Ondansetron HCl 4 mg 02/12/24 07:30 Ondansetron 4 Mg/2 Ml Vial IV 02/12/24 07:31 X1 ONE Phenazopyridine HCl 190 mg 02/12/24 07:30 Phenazopyridine 95 Mg Tablet PO 02/12/24 07:31 X1 ONE PFSH Medical History Wears contact lenses Wears glasses Depression Anxiety Alcohol use Marijuana use Rosacea Low iron High cholesterol Heartburn Non-smoker B12 deficiency Iron deficiency Polycystic ovaries Hypercholesterolemia Gallstones Frequent UTI Anemia Home Medications ?Medication ?Instructions ?Recorded ?Last Taken ?Type desvenlafaxine succinate 50 mg 50 mg PO QAM 01/01/24 02/11/24 History tablet,extended release 24 hr ferrous sulfate 325 mg (65 mg 325 mg PO QODAY 01/01/24 02/10/24 History iron) tablet (FeroSul) lamotrigine 100 mg tablet 100 mg PO QHS 01/01/24 02/11/24 History multivitamin 1 tab PO QDAY 01/01/24 02/11/24 History naltrexone 8 mg-bupropion 90 mg 2 tab PO BID 01/01/24 02/11/24 History tablet,extended release (Contrave) trazodone 50 mg tablet 50 mg PO QHS 01/01/24 02/11/24 History Allergy/AdvReac Type Severity Reaction Status Date / Time No Known Allergies Allergy Verified 02/12/24 06:19 Family History Grandmother Alcoholism Heart disease Nonalcoholic steatohepatitis (ANDERSEN) Mother Arthritis Heart disease Hypercholesterolemia Uncle Melanoma Father Heart disease Grandfather Heart disease Hypercholesterolemia Surgical History History of cholecystectomy Social History Smoking Status: Never smoker alcohol intake: current alcohol intake frequency: a few times a week substance use type: other details: cannabis edibles 1/mo Review of Systems (Anesthesia) ROS Narrative System reviewed and no additional complaints, except as documented.
[2024-02-12 07:22] LABS: Bedside Glucose 110 mg/dL (74-106)
--- NOTE | 2024-02-12 07:23 | PCM.PN.BLA ---
Progress Note The patient was seen in pre op and offered no new complaints or changes. Assessment & Plan Assessment/Plan (1) Chronic pelvic pain in female: PLAN: The patient was seen in the preop area to discuss the surgery again in detail. No changes noted to the history and physical. She understands that a hysterectomy may worsen her chronic pelvic pain. She also understands that a hysterectomy may not improve or change her chronic pelvic pain. Discussed that if significant endometriosis is found at the time of surgery, may be unable to complete the surgery with referral to minimally invasive gynecologic surgery. Discussed if endometriosis noted on an ovary, the recommendation would be removal of that ovary. Again discussed importance of ovarian conservation and risks with oophorectomy at her young age. All questions answered. The patient request to proceed with the procedure and understands all of the above. All questions were answered. The patient strongly desires a hysterectomy for pelvic pain, and declines referral to pelvic pain clinic or [facility] at this time.
[2024-02-12] MEDS: metroNIDAZOLE 500 MG/100 ML BAG 100 MG IV (07:30)
--- NOTE | 2024-02-12 07:30 | HYST_PTH ---
PATIENT: JOSE CARLOS VEGAS LOC: [facility] [place] U#:[id number] AGE/SX: 38/F ROOM: RE02/12/[address]: Dr. Shirin Tam DO : 1985 BED: DIS: 02/12/2024 SPEC #: [id number] RECD: 02/12/24 10:42 STATUS: ANGELINE RECandelario #: [id number] TIMO: 02/12/24 07:[address]: Shirin Tam DEPT: SURGICAL PATHOLOGY RECD BY: Mirella Joshi ENTERED: 02/12/24 12:11 SP TYPE: HYSTERECT OTHR DR: Dr. Behzad Bonner MD Tissues: Uterus, NOS Procedures: Surgery Specimen Level V HEADER OPERATION: Hysterectomy, TLH, bilateral salpingectomy, cystoscopy PRE-OP DIAGNOSIS: Pelvic pain in female TISSUE SUBMITTED: Uterus, bilateral fallopian tubes MICROSCOPIC DIAGNOSIS Uterus, bilateral fallopian tubes, hysterectomy, salpingectomy: Cervix - Mild chronic cystic cervicitis. Endometrium - Consistent with exogenous hormone effect with focal cystic changes. Myometrium - Intramural and subserosal leiomyomas (largest measuring 3.5cm in diameter). - Adenomyosis. Bilateral fallopian tubes- No pathologic diagnosis. 02/15/2024 MICROSCOPIC DESCRIPTION Slides are reviewed. GROSS DESCRIPTION Received in fixative is one container labeled with the patient's name and designated uterus, bilateral fallopian tubes. The specimen consists of a hysterectomy specimen consisting of uterus with cervix and detached bilateral fallopian tubes. The uterus with cervix weighs 145 gm and measures 11.0 x 8.0 x 5.0 cm. A few subserosal nodules are noted. The serosal surface is smooth. The ectocervical mucosa is unremarkable. The external os is oval and patchoulols in contour. The endocervical canal measures 3.5 cm in length and the endocervical mucosa is robertson glistening and unremarkable. The triangular endometrial cavity measures 5.0 cm in length and 2.5 cm in width. The endometrium is robertson, glistening without any mass lesions and measures 0.1 cm in thickness. Sections of uterine wall reveal multiple intramural and subserosal nodular masses. The largest mass measures 3.5cm in diameter. Sections of these mass reveal robertson whorled cut surfaces without areas of hemorrhage, necrosis or cystic degeneration. Uninvolved uterine wall measures up to 2.5cm in thickness. Detached fallopian tubes are not identified as right or left and measures 6.0cm in length and 0.6cm in diameter and 6.0cm in length and 0.7cm in diameter. Fimrbial ends are identified. Sections reveal unremarkable cut surfaces. Instructional Designer sections are submitted in ten cassettes as follows: 1 - anterior cervix, 2 - posterior cervix, 3 & 4 - anterior uterine wall (also contain smaller intramural masses) 5 & 6 - posterior uterine wall, 7- largest nodular mass, 8- second and third largest nodular masses, 9- one fallopian tube, 10- second fallopian tube. SJ: 02/12/2024 TC:1 CPT: 17523
[2024-02-12] MEDS: Cefazolin 2 GM in Syringe IV (07:35)
[2024-02-12] MEDS: Bupivacaine Mpf 0.5% 30 ML VIAL (08:12)
--- NOTE | 2024-02-12 10:18 | PCM.DC ---
Discharge Instructions Diet Discharge Diet: No restrictions DC O2, CPAP, BIPAP needs Additional Home O2 Discharge instructions: No Dressing / Incision Discharge Activity: May Drive (once you are more than 24 hours out from surgery, and once you are strong enough to slam on a brake or turn a steering wheel sharply) and May Shower (once you are more than 24 hours out from surgery) May resume sexual activity in: 6-8 weeks (no tampons, no intercourse, nothing in the vagina, and no soaking in water until 6-8 week follow up) Ice area for (Minutes): 15 Weight Bearing Status: Weight bearing as tolerated Lifting Restrictions: nothing heavier than 10 pounds for 6 weeks Dressing / Incision Call your doctor if your incision/area has: Continuous Slow Oozing, Sudden Increased Bleeding, Increased Pain/ Swelling, Increased Redness, Foul Smelling Discharge and Swelling at the incision site Call your doctor if you observe: Fever of 101 or Higher, Coldness, Increased Pain, Numbness or Tingling, Inability to urinate, Inability to have a bowel movement, Using more than 1 pad per hour, Shortness of breath, Dizziness, Swelling in the ankles, Chest pain, Increased palpitations (irregular heartbeat), Calf discomfort and Uncontrolled pain Suture Line Care: Avoid Pulling/Pushing and Avoid Pinching/Bending Remove Dressing in: leave until fall off (the glue will peel off. there are sutures underneath that will dissolve) Cleanse incision/area with: Soap & Water Follow Up Care Please Follow Up With: Shirin Tam DO When: 1-2 weeks early post op 6 weeks for post op exam Test Results: Test results from this visit will be discussed in further detail at your follow-up appointment, if applicable. Discharge Plan Admission Primary Reason for Your Visit: Surgery Attending Provider: Shirin Tam Primary Care Provider: Behzad Bonner Instructions Patient Instructions: Hysterectomy Lap Dc Additional Instructions / Restrictions: Contrave to not be taken with narcotic pain medication Print Language: Greenlandic Discharge Orders/Prescriptions Prescriptions: Continued multivitamin Tablet 1 tab PO QDAY Contrave 8-90 mg tablet extended release 2 tab PO BID desvenlafaxine succinate 50 mg tablet extended release 24 hr 50 mg PO QAM ferrous sulfate [FeroSul] 325 mg (65 mg iron) tablet 325 mg PO QODAY lamotrigine 100 mg tablet 100 mg PO QHS trazodone 50 mg tablet 50 mg PO QHS Referrals / Follow Up: [facility] Doctor,Out of [Non-Staff] - Disposition Disposition (needs filled in before D/C Order can be placed): Home, Self Care
--- NOTE | 2024-02-12 10:20 | OP.PCM_ITS ---
Problems Associated Problem List Diagnoses (1) Chronic pelvic pain in female: Operative Report (Standard) Operative Information Date of Procedure: 02/12/24 Pre-Operative Diagnosis: Chronic pelvic pain Post-Operative Diagnosis: As above Surgery/Procedure Performed: TLH, BS, cystoscopy cad librarian: Yes Dishcloth Folder: Adrienne Darling Tasks completed by assistant account manager: Closing, Dissecting tissue, Removing tissue, Insert Trochanter, Hemostasis: Electrocautery, Trocar and Retracting Type of Anesthesia: General RN Documented Start/Stop Times: Operation Date: 02/12/24 07:30 Case Time Into Pre-Op 02/12/24 05:48 Anesthesia Start 02/12/24 07:35 Into Room 02/12/24 07:35 Procedure Start 02/12/24 07:57 Procedure End 02/12/24 10:08 Anesthesia End 02/12/24 10:20 Out of Room 02/12/24 10:20 Into Recovery 02/12/24 10:25 Procedure Start Time: 07:57 Procedure Stop Time: 10:08 Select all DRAINS/GRAFTS/IMPLANTS that apply: None Special Medications: None Estimated Blood Loss: 50 mL Fluids Replaced: 1500 mL Specimen collected: Yes Description of specimen(s) removed: Uterus, cervix, bilateral fallopian tubes Description of surgery: The patient was taken to the OR where general anesthesia was induced. She was prepped and draped in dorsal lithotomy position using yellow fin stirrups in usual sterile fashion. At the vagina, a recinos catheter was inserted into her bladder. A weighted speculum was placed in the vagina to expose the cervix. The anterior lip of the cervix was grasped with a single tooth tenaculum. A JEANNE uterine manipulator was placed in usual sterile fashion. The weighted speculum and tenaculum were rem vahid. Gloves were changed and attention was turned to the abdominal portion of the case. Local was infiltrated at all port sites. A subumbilical skin incision was made to accommodate a 5 mm port. The 5 mm port was placed under direct visualization using the laparoscope. No injury was noted upon entry. CO2 gas was use to insufflate the abdomen. The patient was placed in Trendelenburg position. A left lateral 5 mm port was placed. A right lateral 5 mm was placed. Again, no injury noted upon entry. The uterus was upheld from below noting an enlarged fibroid uterus, and normal appearing bilateral adnexa. Normal appearing pelvic CDS. Beginning on the right side, the fallopian tube was elevated. The mesosalpinx was then clamped, ligated and cut hugging adjacent to the tube until reaching the level of the cornua where it was transected and removed. The same was performed on the left side to remove the left fallopian tube. On the right side, the round ligament was transected, and the anterior leaf of the broad ligament was then taken down on the right side dissecting down towards the peritoneal reflection at the base of the bladder. The right utero ovarian ligament was then clamped, sealed and cut. The ovarian pedicle was hemostatic. The left round ligament was then transected, and the anterior leaf of the broad ligament was dissected such that both sides met and the anterior leaflet was skeletonized. Next the left utero ovarian ligament was clamped, sealed and cut. The ovarian pedicle was hemostatic. Bilateral ureters were well visualized bilaterally. Once the bladder was dissected from the anterior uterine segment and the tissue skeletonized, bilateral uterine arteries were clamped, sealed and ligated. The pedicles were hemostatic. At the level of the cup of the uterine manipulatory, the monopolar hook of the Ligasure device was used to incise the vaginal vault circumferentially. The uterus and cervix were delivered through the vagina and sent to pathology along with the bilateral fallopian tubes. Vaginally, a weighted speculum was placed to exposure the vaginal cuff. Pedicles were hemostatic. The posterior vaginal cuff was run in a running locked fashion using 2-0 Vicryl. The vaginal cuff was then closed with -0 Vicryl in interrupted figure of eight sutures. Hemostasis was noted and the cuff completely closed. A cystoscopy was performed noting a normal appearing bladder, and good bilateral ureteral jets. The recinos catheter was re inserted and a sponge stick inserted into the vagina. Gloves were changes and attention was again turned abdominally. The abdomen was insufflated again. The pedicles and vaginal cuff were hemostatic, except the left angle of the vagina cuff which was oozing. Hemablast and pressure were used over the left angle of the vaginal cuff to achieve complete hemostasis. Hemostasis was confirmed, and the abdomen exsufflated and all ports removed. The skin was closed with 4-0 Monocryl and glue. The recinos and vaginal sponge stick were removed. A vaginal sweep was performed. Instrument, sponge, and sharp counts were correct x 2. Surgical Findings: Enlarged fibroid uterus with a subserosal fibroid noted over right lateral uterus. Normal appearing bilateral ovaries and fallopian tubes. Normal appearing pelvis Complications Complications: No Admit VTE Documentation VTE Present on Admission: No VTE Mechan Device Prophylaxis: SCD's
--- NOTE | 2024-02-12 10:24 | PCM.POST.ANE ---
Anesthesia: Postop Eval I Current Vital Signs Temperature: 97.7 F Pulse Rate: 83 Blood Pressure: 119/85 Respiratory Rate: 18 Pulse Ox: 99 Assessment Airway patent: Yes Spontaneous unlabored respirations: Yes nausea: No Vomiting: No Anesthesia Complication: No Fluid Hydration Crystalloid volume administer (ml): 1,500 Total IV fluid infused: 1,500 Progress Note Anesthesia document: Postop Eval 1 completed: Yes
[2024-02-12] MEDS: Ondansetron 4 MG/2 ML Vial IV (10:57)
--- NOTE | 2024-02-12 11:32 | POSTOPAN2_ITS ---
Anesthesia Postop Eval I Sum Postop Eval Completion status Anesthesia document: Postop Eval 1 completed: Yes Anesthesia Postop Eval I Summary Anesthesia Postop Eval I Summary: Anesthesia Postop Eval I: Assessment Summary Airway patent Yes 02/12/24 10:24 [email or web address] [email or web address] Spontaneous unlabored Yes 02/12/24 10:24 CURB [email or web address] respirations Mental status nausea No 02/12/24 10:24 CURB [email or web address] Vomiting No 02/12/24 10:24 CURB [email or web address] Anesthesia Postop Eval I: Fluid Summary Crystalloid volume administer 1,500 02/12/24 10:24 CURB [email or web address] (ml) Colloids volume administered ( ml) Blood Product volume administered (ml) Total IV fluid infused 1,500 02/12/24 10:24 CURB [email or web address] Anesthesia Postop Eval I: Summary Notes Anesthesia Complication No 02/12/24 10:24 CURB [email or web address] Anesthesia Complication Comment: Post-operative progress note Anesthesia: Postop Eval II Evaluation Mental status: Awake and Calm Pain Level: 2 nausea: No Vomiting: No Complications Anesthesia Complication: No
--- NOTE | 2024-02-12 11:32 | PCM.POSTANE2 ---
Anesthesia Postop Eval I Sum Postop Eval Completion status Anesthesia document: Postop Eval 1 completed: Yes Anesthesia Postop Eval I Summary Anesthesia Postop Eval I Summary: Anesthesia Postop Eval I: Assessment Summary Airway patent Yes 02/12/24 10:24 DEVELOPMENT SYSTEM EFFICIENCY MANAGER.CSIR Spontaneous unlabored Yes 02/12/24 10:24 DEVELOPMENT SYSTEM EFFICIENCY MANAGER.CSIR respirations Mental status nausea No 02/12/24 10:24 DEVELOPMENT SYSTEM EFFICIENCY MANAGER.CSIR Vomiting No 02/12/24 10:24 DEVELOPMENT SYSTEM EFFICIENCY MANAGER.CSIR Anesthesia Postop Eval I: Fluid Summary Crystalloid volume administer 1,500 02/12/24 10:24 DEVELOPMENT SYSTEM EFFICIENCY MANAGER.CSIR (ml) Colloids volume administered ( ml) Blood Product volume administered (ml) Total IV fluid infused 1,500 02/12/24 10:24 DEVELOPMENT SYSTEM EFFICIENCY MANAGER.CSIR Anesthesia Postop Eval I: Summary Notes Anesthesia Complication No 02/12/24 10:24 DEVELOPMENT SYSTEM EFFICIENCY MANAGER.CSIR Anesthesia Complication Comment: Post-operative progress note Anesthesia: Postop Eval II Evaluation Mental status: Awake and Calm Pain Level: 2 nausea: No Vomiting: No Complications Anesthesia Complication: No
[2024-02-12] MEDS: oxyCODONE 5 MG Tablet PO (12:34)
== END 2024-02-12 15:27 | disposition home or self-care (01) ==
LOC: SDC 05:42 → AC 05:42
PROVIDERS: PCP Family Medicine; Referring Provider Obstetrics & Gynecology; Visit Provider Obstetrics & Gynecology
PROC: 0UT94ZZ Resection of Uterus, Percutaneous Endoscopic Approach (ICD-10-PCS; CPT 58571; principal; 2024-02-12 07:10)
DX: D25.2 Subserosal leiomyoma of uterus (principal); E61.1 Iron deficiency; F41.1 Generalized anxiety disorder; F32.9 Major depressive disorder, single episode, unspecified; Z90.49 Acquired absence of other specified parts of digestive tract; R10.2 Pelvic and perineal pain; G89.29 Other chronic pain; N72 Inflammatory disease of cervix uteri; D25.1 Intramural leiomyoma of uterus
CPT/HCPCS: 58571; 52000; 00840; 36415; 80053; 81025; 82962; 83735; 85027; 86850; 86900; 86901; 88307; J2405